=== PATIENT | male | born 1950 ===

== ENCOUNTER 2024-01-04 18:16 | Outpatient (NON) | payer MEDICARE, SELFPAY ==
[2024-01-04 22:24] LABS: Appearance Urine Clear (Clear); Bilirubin Urine Negative (Negative); Blood Urine Negative (Negative); Color Urine Yellow (Yellow); Glucose Urine UA Negative (Negative); Ketones Urine Negative (Negative); Leukocyte Esterase Ur Negative (Negative); Nitrate Urine Negative (Negative); Protein Urine Trace (Negative); pH Urine 6.5 (5.0-8.0)
[2024-01-04 22:29] LABS: Add Urine Microscopic? YES; Bacteria Urine 1+ /hpf; RBC Urine 0-2 /hpf (0-2); Squamous Epithelial Cell Urine None seen /hpf (Few); WBC Urine 0-3 /hpf (0-3)
== END 2024-01-04 18:17 | disposition home or self-care (01) ==
LOC: CHSLAB 18:25
DX: R30.9 Painful micturition, unspecified (principal); R10.9 Unspecified abdominal pain; R50.9 Fever, unspecified
CPT/HCPCS: 81001; 87086